=== PATIENT | female | born 1985 | race Caucasian/White ===

== ENCOUNTER 2017-05-02 04:43 | Inpatient (IN) | payer BC ==
[~2017-05-02] VITALS: Ht 162.6 cm; Wt 63.0 kg
[2017-05-02] VITALS (12 sets, daily range): BP systolic 98–113; BP diastolic 50–74; PULSE 74–100; RESP 12–18; TEMP 97.8–98; O2SAT 99
[~2017-05-02 04:43] MED LIST: OXYC1SOL5 PO; PREN0.01 PO
[2017-05-02] MEDS ORDERED: CITRIC ACID-SODIUM CITRATE LIQ 30 ML UDC PO SCH (05:15)
[2017-05-02] MEDS ORDERED: LACTATED RINGER'S 1000 ML IV ONE (05:15)
[2017-05-02] MEDS ORDERED: CLINDAMYCIN 600 MG/NS 100 ML IV SCH ×2 (05:15)
[2017-05-02] MEDS ORDERED: LACTATED RINGER'S 1000 ML IV SCH (05:15)
[2017-05-02] MEDS ORDERED: ONDANSETRON HCL 4 MG/2 ML VIAL ONE ×2 (05:19→08:07)
[2017-05-02] MEDS ORDERED: ONDANSETRON HCL 4 MG/2 ML VIAL IV PUSH ONE (05:30)
[2017-05-02] MEDS ORDERED: ACETAMINOPHEN 1000 MG/100 ML 100 ML IV ONE (05:42)
[2017-05-02 05:45] LABS: AUTOMATED NEUTROPHIL # 7.5 TH/MM3 (1.8-7.7); BASOPHIL # 0.1 TH/MM3 (0-0.2); BASOPHIL % 0.6 % (0.0-2.0); EOSINOPHIL % 0.4 % (0.0-4.0); HEMATOCRIT 34.1 % (35.0-46.0); HEMO FLAGS DIFF FINAL; LYMPH % 20.1 % (9.0-44.0); LYMPHOCYTE # 2.1 TH/MM3 (1.0-4.8); MEAN CELL VOLUME 85.9 FL (80.0-100.0); MEAN CORPUSCULAR HEMOGLOBIN 28.4 PG (27.0-34.0); MEAN CORPUSCULAR HGB CONC 33.1 % (32.0-36.0); MONO % 6.4 % (0.0-8.0); NEUT % 72.5 % (16.0-70.0); PLATELET COUNT 155 TH/MM3 (150-450); RED BLOOD COUNT 3.97 MIL/MM3 (4.00-5.30); RED CELL DISTRIBUTION WIDTH 14.3 % (11.6-17.2); WHITE BLOOD COUNT 10.3 TH/MM3 (4.0-11.0)
[2017-05-02] MEDS ORDERED: KETOROLAC TROMETHAMINE 60 MG/2 ML (IM) VIAL IM PRN (06:15)
[2017-05-02] MEDS ORDERED: ONDANSETRON HCL 4 MG/2 ML VIAL IV PUSH PRN (06:15)
[2017-05-02] MEDS ORDERED: OXYTOCIN 30 UNITS-500ML PREMIX 500 ML IV ONE (06:15)
[2017-05-02] MEDS ORDERED: SODIUM CHLORIDE 0.9% FLUSH 10 ML FLUSH IV FLUSH PRN (06:15)
--- NOTE | 2017-05-02 07:21 | MP ---
cc: VICKIE CANELA M.D. DATE OF SURGERY 05/02/2017 PREOPERATIVE DIAGNOSIS Intrauterine at 39 weeks gestation with previous section. POSTOPERATIVE DIAGNOSIS Intrauterine at 39 weeks gestation with previous section. PROCEDURE PERFORMED Repeat low transverse section. OPERATING SURGEON Dr. Vickie Canela ANESTHESIA Spinal FINDINGS IN SURGERY Included a viable female weighing 7 pounds 4 ounces with 's 8 and 9, normal-appearing tubes and ovaries bilaterally. BLOOD LOSS 800 cc. COMPLICATIONS None PROCEDURE IN DETAIL After proper consents were obtained, the patient was taken to the operating room where a spinal anesthetic was placed. She was then placed in the dorsal position, sterilely prepped and draped and a Collins catheter was placed. At this time using a sharp knife, a revision of a prior Pfannenstiel skin incision was performed. This was carried down to the fascia using Bovie cautery. Fascia was nicked in the midline and extended superolaterally on each side. We then had blunt dissection of the muscle bellies. We then identified the peritoneum, grasped with two hemostats, entered sharply with the Metzenbaum scissors. We extended this superiorly and inferiorly paying close attention to the bladder. A bladder blade was placed. Bladder flap was made, bladder blade was replaced. We made a transverse incision in the lower uterine segment. We extended that using the finger fracture technique. We had a controlled delivery of the vertex, bulb suction to the oropharynx and the nares. A nuchal cord x1 was reduced. We then delivered the body easily. The cord was clamped x2 after 45 seconds, cut in between and the was handed to the team in attendance, a viable female weighing 7 pounds 4 ounces with 's 8 and 9. At this time, cord blood sample was obtained. Placenta was removed. Uterus was exteriorized and wiped clean of clots and debris. The incision was closed with a #1 chromic suture starting at each apex meeting in the midline in a running interlocking fashion. Excellent hemostasis was noted. Irrigation was performed in the abdominopelvic cavity. Hemostasis was assured. We replaced the uterus back into the abdominal cavity. We went ahead and closed the muscles using a #1 chromic suture x1. We then closed the fascia using a 0 Vicryl starting at each apex meeting in the midline in a running fashion. Irrigation was performed in the subcu. Hemostasis achieved with the Bovie cautery. We then closed the space using interrupted sutures of 3-0 Vicryl. Skin was closed with puneet. All sponge, lap and needle count were correct x3. MD PA Sosa/FERNY /6:52 AM /7:11 AM
[2017-05-02] MEDS ORDERED: OXYTOCIN 30 UNITS-500ML PREMIX 500 ML ONE (07:34)
[2017-05-02] MEDS ORDERED: SODIUM CHLORIDE 0.9% FLUSH 10 ML FLUSH IV FLUSH SCH (09:00)
[2017-05-02] MEDS ORDERED: LACTATED RINGER'S 1000 ML INJ 1,000 ML IV SCH (11:03)
[2017-05-02] MEDS: oxyCODONE/ACETAMINOPHEN 5 MG/325 MG TAB PO PRN ×2 (15:16→20:29)
[2017-05-02] MEDS ORDERED: OXYTOCIN 30 UNITS-500ML PREMIX 500 ML IV PRN (16:15)
[2017-05-02] MEDS: IBUPROFEN 600 MG TAB PO PRN (20:28)
[2017-05-03 00:05] VITALS: BP 93/58; PULSE 74; RESP 16; TEMP 98.3
[2017-05-03] MEDS: oxyCODONE/ACETAMINOPHEN 5 MG/325 MG TAB PO PRN ×6 (00:40→21:06)
[2017-05-03 04:40] VITALS: BP 87/62; PULSE 81; RESP 14; TEMP 98.6
[2017-05-03] MEDS: IBUPROFEN 600 MG TAB PO PRN ×3 (04:42→21:06)
[2017-05-03 06:09] LABS: AUTOMATED NEUTROPHIL # 11.5 TH/MM3 (1.8-7.7); BASOPHIL % 0.1 % (0.0-2.0); EOSINOPHIL % 0.2 % (0.0-4.0); HEMATOCRIT 27.7 % (35.0-46.0); HEMO FLAGS DIFF FINAL; LYMPH % 11.2 % (9.0-44.0); LYMPHOCYTE # 1.6 TH/MM3 (1.0-4.8); MEAN CELL VOLUME 86.5 FL (80.0-100.0); MEAN CORPUSCULAR HEMOGLOBIN 28.1 PG (27.0-34.0); MEAN CORPUSCULAR HGB CONC 32.5 % (32.0-36.0); MONO % 5.6 % (0.0-8.0); NEUT % 82.9 % (16.0-70.0); PLATELET COUNT 139 TH/MM3 (150-450); RED BLOOD COUNT 3.21 MIL/MM3 (4.00-5.30); RED CELL DISTRIBUTION WIDTH 14.7 % (11.6-17.2); WHITE BLOOD COUNT 13.9 TH/MM3 (4.0-11.0)
[2017-05-03] MEDS: SIMETHICONE 80 MG CHEWABLE TAB PO PRN ×2 (09:08→17:07)
--- NOTE | 2017-05-03 11:01 | HHI.OB ---
Subjective Post Operative Day: 1 Remarks Pt doing well, slight nausea, good pain control, tolerating po Objective Vitals/I&O Vital Signs Date Time Temp Pulse Resp B/P (MAP) Pulse Ox O2 Delivery O2 Flow Rate FiO2 05/03/17 04:40 98.6 81 14 87/62 (70) 05/03/17 00:05 74 16 93/58 (70) 05/03/17 00:05 98.3 05/02/17 20:20 98.0 74 16 113/59 (77) Result Diagram: 05/03/17 0555 Objective Remarks GENERAL: Well-nourished, well-developed patient. CARDIOVASCULAR: Regular rate and rhythm without murmurs, gallops, or rubs. RESPIRATORY: Breath sounds equal bilaterally. No accessory muscle use. ABDOMEN/GI: Abdomen soft, non-tender, bowel sounds present. Incision: Clean, dry and intact. Fundus: Firm, non-tender at umbilicus. GENITOURINARY: Light to moderate bleeding. EXTREMITIES: No cyanosis or edema, non-tender, without signs of DVT. Medications and IVs Current Medications Medications (Trade) Dose Ordered Sig/Evangelist Route Start Time Stop Time Status Last Admin Lactated Ringer's 1,000 ml @ 150 mls/hr Q6H40M IV 05/02/17 05:15 (Bicitra Liq) 30 ml CAUL DRESSER PO 05/02/17 05:15 05/05/17 05:14 Clindamycin Phosphate 600 mg/ Sodium Chloride 104 ml @ 208 mls/hr CAUL DRESSER IV 05/02/17 05:15 Oxytocin 500 ml @ 100 mls/hr UNSCH X1 PRN IV 05/02/17 16:15 05/03/17 16:14 (NS Flush) 2 ml BID IV FLUSH 05/02/17 09:00 (NS Flush) 2 ml UNSCH PRN IV FLUSH 05/02/17 06:15 (Mylicon Chew) 80 mg QID PRN PO 05/02/17 06:15 05/03/17 09:08 (Percocet 5-325 Mg) 1 tab Q4H PRN PO 05/02/17 06:15 05/03/17 09:08 (Percocet 5-325 Mg) 2 tab Q4H PRN PO 05/02/17 06:15 05/03/17 00:40 (M-M-R Ii Inj) 0.5 ml ONCE ONCE SQ 05/03/17 16:00 05/03/17 16:01 (Boostrix Inj) 0.5 ml ONCE ONCE IM 05/03/17 16:00 05/03/17 16:01 05/03/17 04:40 (Zofran Inj) 4 mg Q6H PRN IV PUSH 05/02/17 06:15 (Motrin) 600 mg Q6H PRN PO 05/02/17 18:15 05/03/17 04:42 Assessment/Plan Assessment and Plan POD # 1 s/p repeat c/s, doing well, routine care Torrie Guillermo MD May 03, 2017 11:01
[2017-05-03] MEDS ORDERED: ONDANSETRON ODT 4 MG TAB SL PRN (13:30)
[2017-05-03] MEDS ORDERED: MEASLES, MUMPS, RUBELLA VACCINE 0.5 ML VIAL SQ ONE (16:00)
[2017-05-03] MEDS ORDERED: DIPHTH/TETANUS/ACEL PERTUSSIS (BOOSTER) 0.5 ML VIAL/PFS IM ONE (16:00)
[2017-05-03 19:30] VITALS: BP 101/69; PULSE 79; RESP 18; TEMP 98.6
[2017-05-04] MEDS: oxyCODONE/ACETAMINOPHEN 5 MG/325 MG TAB PO PRN ×3 (01:07→10:05)
[2017-05-04] MEDS: IBUPROFEN 600 MG TAB PO PRN ×2 (03:17→10:04)
[2017-05-04] MEDS: SIMETHICONE 80 MG CHEWABLE TAB PO PRN (10:04)
[2017-05-04] MEDS ORDERED: OXYC1TAB63 PO (10:13)
--- NOTE | 2017-05-04 10:14 | HHI.DCPOC ---
Discharge Care Plan Report Symptoms to Your Doctor -Temperature above 100.5 degrees -Redness, of incision or excessive or foul smelling drainage -Unusual pain or calf pain -Increased vaginal bleeding -Painful or difficulty urinating -Feelings of extreme sadness or anxiety after 2 weeks Goals to Promote Your Health * To prevent worsening of your condition and complications * To maintain your health at the optimal level Directions to Meet Your Goals Take your medications as prescribed Follow your dietary instruction Follow activity as directed Ensure plenty of rest for recovery Drink fluids for hydration Keep your appointments as scheduled Take your immunizations and boosters as scheduled If your symptoms worsen call your PCP, if no PCP go to Urgent Care Center or Emergency Room Smoking is Dangerous to Your Health. Avoid second hand smoke Call the 24-hour crisis hotline for domestic abuse at Torrie Guillermo MD May 04, 2017 10:14
--- NOTE | 2017-05-04 10:15 | HHI.DS ---
Admission Date May 02, 2017 at 04:43 Discharge Date: May 04, 2017 Admitting Diagnosis IUP at 39 wks previous c/s for repeat Diagnosis: : Repeat : Female Pt Condition on Discharge: Good Discharge Disposition: Discharge Home Discharge Instructions Diet Instructions: As Tolerated, No Restrictions Activities You Can Perform: Pelvic Rest Torrie Guillermo MD May 04, 2017 10:15
== END 2017-05-04 15:45 | disposition home or self-care (01) | DRG 766 ==
LOC: H2EB 04:43 → H1EA 08:29
PROVIDERS: ADMIT Obstetrics & Gynecology; ATTEND Obstetrics & Gynecology
PROC: 10D00Z1 Extraction of Products of Conception, Low, Open Approach (ICD-10-PCS; principal; 2017-05-02)
DX: O34.219 Maternal care for unspecified type scar from previous cesarean delivery (principal); O69.81X0 Labor and delivery complicated by cord around neck, without compression, not applicable or unspecified; Z37.0 Single live birth; Z3A.39 39 weeks gestation of pregnancy
CPT/HCPCS: 85025; 86850; 86900; 86901; 90715; J0131; J2405; J2590; J3010